=== PATIENT | female | born 1995 | race Caucasian/White ===

== ENCOUNTER 2018-03-08 19:15 | Emergency (ER) | payer OTHER, BC ==
[~2018-03-08 19:15] MED LIST: ALBUTEROL0.09 MG/A2 INH; BENADRYL50 MG PO; CYMBALTA60 MG PO; MOTRIN400 MG PO; MOTRIN800 MG PO; PEPCID20 MG PO; PREDNISONE10 MG PO; PREDNISONE20 MG PO; ZITHROMAX250 MG PO
[2018-03-08 19:17] VITALS: BP 141/93
[2018-03-08] MEDS ORDERED: PREDNISONE20 M1 PO (19:49)
[2018-03-08] MEDS ORDERED: Kenalog 0.5% Cr15 GM T (19:49)
== END 2018-03-08 20:00 | disposition home or self-care (01) ==
LOC: ED 19:15
DX: L24.5 Irritant contact dermatitis due to other chemical products (principal); Z88.1 Allergy status to other antibiotic agents; Z88.0 Allergy status to penicillin; Z79.899 Other long term (current) drug therapy

== ENCOUNTER 2019-01-27 10:36 | Emergency (ER) | payer BC ==
[~2019-01-27] VITALS: Ht 167.6 cm; Wt 136.1 kg
[~2019-01-27 10:36] MED LIST changes: +Kenalog 0.5% Cr15 GM T; +PREDNISONE20 M1 PO
[2019-01-27 10:39] VITALS: BP 141/93
== END 2019-01-27 12:41 | disposition home or self-care (01) ==
LOC: ED 10:36
DX: S51.811A Laceration without foreign body of right forearm, initial encounter (principal); Z88.1 Allergy status to other antibiotic agents; Z88.0 Allergy status to penicillin; Z79.899 Other long term (current) drug therapy; W26.0XXA Contact with knife, initial encounter; Y93.89 Activity, other specified; Y92.098 Other place in other non-institutional residence as the place of occurrence of the external cause; Y99.8 Other external cause status

== ENCOUNTER → 2019-11-06 | Outpatient (CLI) | payer BC | END | disposition home or self-care (01) | LOC: COVID19 03:40 | PROVIDERS: ATTEND Internal Medicine Nephrology | DX: U07.1 COVID-19 (principal) ==

== ENCOUNTER 2020-09-10 17:02 | Emergency (ER) | payer BC ==
[~2020-09-10] VITALS: Wt 149.7 kg
[2020-09-10 17:08] VITALS: BP 146/83
[2020-09-10] MEDS ORDERED: DOXYCYCLINE100 M3 PO (17:29)
== END 2020-09-10 17:35 | disposition home or self-care (01) ==
LOC: ED 17:02
DX: L03.221 Cellulitis of neck (principal); Z88.1 Allergy status to other antibiotic agents; Z88.0 Allergy status to penicillin; Z79.2 Long term (current) use of antibiotics; Z79.899 Other long term (current) drug therapy; Z96.22 Myringotomy tube(s) status

== ENCOUNTER → 2020-09-16 | Outpatient (CLI) | payer BC ==
[~2020-09-16] MED LIST changes: +DOXYCYCLINE100 M3 PO
[2020-09-16 17:32] LABS: FREE T4 1.03 ng/dl (0.76-1.46); THYROID STIM HORMONE (HS) 1.48 uIU/ml (0.358-4.75)
[2020-09-17 08:08] LABS: FOLLICLE STIMULATING HORMONE 6.8 mIU/mL (.); LUTEINIZING HORMONE 6.3 mIU/mL (.)
== END | disposition home or self-care (01) ==
LOC: LAB 16:00
PROVIDERS: ATTEND Family Medicine
DX: N92.0 Excessive and frequent menstruation with regular cycle (principal)

== ENCOUNTER → 2020-09-24 | Outpatient (CLI) | payer BC | END | disposition home or self-care (01) | LOC: US 09-17 00:15 | PROVIDERS: ATTEND Internal Medicine | DX: R10.30 Lower abdominal pain, unspecified (principal) ==